=== PATIENT | male | born 1985 | race African-American/Black ===

== ENCOUNTER 2020-01-23 23:15 | Emergency (ER) | payer BC, OTHER ==
[2020-01-23 23:47] VITALS: BP 116/69; PULSE 64; TEMP 97.6; BMI 23.7
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
[2020-01-24] MEDS ORDERED: KETOROLAC TROMETHAMINE 60 MG/2 ML VIAL IM ONE (02:20)
[2020-01-24] MEDS ORDERED: KETOROLAC TROMETHAMINE 60 MG/2 ML VIAL ONE (02:23)
[2020-01-24] MEDS ORDERED: IBUPROFEN 600 MG TABLET (FP) PO ONE ×3 (02:31→03:05)
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
== END 2020-01-24 03:47 | disposition home or self-care (01) ==
LOC: JER 23:15
DX: Z04.1 Encounter for examination and observation following transport accident (principal); M54.5 Low back pain; M25.511 Pain in right shoulder; M25.512 Pain in left shoulder; F17.210 Nicotine dependence, cigarettes, uncomplicated; V49.49XA Driver injured in collision with other motor vehicles in traffic accident, initial encounter; Y92.488 Other paved roadways as the place of occurrence of the external cause; Y93.89 Activity, other specified; Y99.8 Other external cause status
CPT/HCPCS: 71046-TC-FY; 72100-TC-FY; 72170-TC-FY; 73030-TC-LT-FY; 73030-TC-RT-FY; 99284-25

== ENCOUNTER 2021-10-26 11:22 | Emergency (ER) | payer OTHER, BC ==
[2021-10-26 11:45] VITALS: BP 136/81; PULSE 57; TEMP 97.6; BMI 23.7
[2021-10-26] MEDS ORDERED: KETOROLAC TROMETHAMINE 30 MG/1 ML VIAL IM ONE (12:04)
[2021-10-26] MEDS ORDERED: IBUPROFEN 600 MG TABLET (FP) PO ONE ×2 (12:12→12:37)
[2021-10-26] MEDS ORDERED: LIDOCAINE 5% TOPICAL PATCH TP ONE (12:27)
[2021-10-26] MEDS ORDERED: LIDOCAINE 5% TOPICAL PATCH ONE (12:37)
[2021-10-26] MEDS ORDERED: LIDOCAINE PATCH REMOVAL MC ONE (22:00)
== END 2021-10-26 13:45 | disposition home or self-care (01) ==
LOC: JERFT 11:22 → JER 11:22 → JERFT 13:45
DX: M54.50 Low back pain, unspecified (principal); M25.512 Pain in left shoulder; V49.40XA Driver injured in collision with unspecified motor vehicles in traffic accident, initial encounter
CPT/HCPCS: 72100-TC-FY; 73030-TC-LT-FY; 99284-25

== ENCOUNTER 2023-06-10 02:09 | Emergency (ER) | payer SELFPAY ==
[2023-06-10 02:19] VITALS: BP 124/76; PULSE 64; RESP 18; TEMP 98; BMI 25.0
== END 2023-06-10 04:34 | disposition home or self-care (01) ==
LOC: JER 02:09
DX: R22.1 Localized swelling, mass and lump, neck (principal); L02.11 Cutaneous abscess of neck
CPT/HCPCS: 99283-25

== ENCOUNTER 2025-02-15 16:41 | Emergency (ER) | payer OTHER ==
[2025-02-15 17:32] VITALS: BMI 24.4
[2025-02-15] MEDS ORDERED: ACETAMINOPHEN INJECTION 100 ML ONE (17:46)
[2025-02-15] MEDS: ACETAMINOPHEN 1000 MG/100 ML BAG IVPB ONE (19:25)
[2025-02-15 20:45] VITALS: TEMP 97.9
[2025-02-15] MEDS ORDERED: IBUPROFEN 400 MG TABLET (FP) PO ONE (21:00)
[2025-02-15 21:08] VITALS: BP 128/74; PULSE 90; RESP 18
[2025-02-15] MEDS: IBUPROFEN 400 MG TABLET (FP) PO ONE (21:11)
== END 2025-02-15 21:23 | disposition home or self-care (01) ==
LOC: JER 16:41
PROC: 3E033NZ Introduction of Analgesics, Hypnotics, Sedatives into Peripheral Vein, Percutaneous Approach (ICD-10-PCS; principal; 2025-02-15)
DX: S16.1XXA Strain of muscle, fascia and tendon at neck level, initial encounter (principal); M25.512 Pain in left shoulder; M54.6 Pain in thoracic spine; V59.50XA Passenger in pick-up truck or van injured in collision with unspecified motor vehicles in traffic accident, initial encounter
CPT/HCPCS: 70450-TC; 71046-TC-FY; 72125-TC; 72128-TC; 72131-TC; 72170-TC-FY; 73030-TC-LT-FY; 99285-25; J0131

== ENCOUNTER 2025-06-15 16:58 | Emergency (ER) | payer OTHER ==
[2025-06-15 17:03] VITALS: BP 129/71; RESP 18; BMI 23.0
[2025-06-15] MEDS ORDERED: ONDANSETRON 4 MG/2 ML VIAL ONE (17:52)
[2025-06-15] MEDS ORDERED: ACETAMINOPHEN INJECTION 100 ML ONE (17:52)
[2025-06-15 17:55] LABS: ABSOLUTE IMMATURE GRANULOCYTES 0.04 x10^3/uL (0.0-0.031); BASOPHILS # 0.03 x10^3/uL (0.01-0.08); EOSINOPHIL % 0.0 % (0.8-7.0); EOSINOPHILS # 0.00 x10^3/uL (0.04-0.54); MCHC 34.0 g/dl (32.3-36.5); MEAN CELL VOLUME 86.9 fl (79.0-92.2); MEAN PLT VOLUME 9.1 fl (9.4-12.4); MONOCYTE # 0.73 x10^3/uL (0.30-0.82); MONOCYTE % 7.1 % (5.3-12.2); RDW 13.2 % (12.0-15.6)
[2025-06-15] MEDS: ONDANSETRON 4 MG/2 ML VIAL IVPB ONE (17:55)
[2025-06-15] MEDS: LACTATED RINGERS SOLUTION 1000 ML INFUS.BAG IV ONE (17:56)
[2025-06-15] MEDS: ACETAMINOPHEN 1000 MG/100 ML BAG IVPB ONE (17:56)
[2025-06-15 18:51] VITALS: PULSE 66; TEMP 101.5
[2025-06-15 20:08] LABS: CO2 27.0 mmol/L (21-32); GLUCOSE,RANDOM 138.0 mg/dL (74-106)
[2025-06-15 20:11] LABS: CREATININE 1.4 mg/dL (0.55-1.3); SGOT/AST 81.0 U/L (15-37); SGPT/ALT 32.0 U/L (13-61)
[2025-06-15 20:13] LABS: TOT PROT 7.9 g/dl (6.4-8.2)
[2025-06-15 20:14] LABS: ALK PHOS 71.0 U/L (45-117)
[2025-06-15] MEDS ORDERED: POTASSIUM CHLORIDE ORAL LIQUID 20 MEQ/15 ML ONE (20:52)
[2025-06-15] MEDS ORDERED: IBUPROFEN 600 MG TABLET (FP) PO ONE (20:52)
[2025-06-15] MEDS: IBUPROFEN 600 MG TABLET (FP) PO ONE (21:03)
[2025-06-15] MEDS: POTASSIUM CHLORIDE ORAL LIQUID 20 MEQ/15 ML PO ONE (21:04)
[2025-06-15 21:09] LABS: EPI CELLS 18 /uL (0-25.1); HYALINE CASTS 1 /uL (0-3.1); URINE APPEARANCE CLEAR; URINE BACTERIA 7 /uL (0-1359); URINE BILIRUBIN NEGATIVE (NEGATIVE); URINE COLOR DK YELLOW; URINE GLUCOSE (UA) NEGATIVE (NEGATIVE); URINE KETONE TRACE (NEGATIVE); URINE LEUK ESTERASE NEGATIVE (NEGATIVE); URINE NITRITE NEGATIVE (NEGATIVE); URINE PROTEIN 3+ (NEGATIVE); URINE RBC 58 /uL (0-23.9); URINE UROBILINOGEN 1.0 mg/dL (0.2-1.0); URINE WBC 20 /uL (0-25.8)
[2025-06-16 00:47] LABS: HCV DIAGNOSTIC IN-HOUSE W/RFLX NON-REACTIVE (NONREACTIVE)
[2025-06-16 00:52] LABS: HIV INTERPRETATION NEGATIVE (NEGATIVE)
== END 2025-06-15 21:05 | disposition home or self-care (01) ==
LOC: JER 16:58
PROC: 3E033NZ Introduction of Analgesics, Hypnotics, Sedatives into Peripheral Vein, Percutaneous Approach (ICD-10-PCS; principal; 2025-06-15)
PROC: 3E033GC Introduction of Other Therapeutic Substance into Peripheral Vein, Percutaneous Approach (ICD-10-PCS; 2025-06-15)
DX: R50.9 Fever, unspecified (principal); R11.10 Vomiting, unspecified; R19.7 Diarrhea, unspecified; R05.9 Cough, unspecified; R10.84 Generalized abdominal pain; R51.9 Headache, unspecified; R53.81 Other malaise
CPT/HCPCS: 36415; 71045-TC-FY; 80053; 81003; 83690; 85025; 86803; 87086; 87389; 87637-QW; 87899; 99284-25